=== PATIENT | female | born 1990 | race Caucasian/White ===

== ENCOUNTER 2017-02-19 19:35 | Inpatient (IN) | payer BC ==
[2017-02-19] MEDS ORDERED: PROMETHAZINE HCL 25 MG/1 ML VIAL IVPUSH ONE (20:17)
[2017-02-19] MEDS ORDERED: BUTORPHANOL TARTRATE 1 MG/ML VIAL IVPB PRN (20:30)
[2017-02-19] MEDS ORDERED: ELECTROLYTE-148 SOLN 1,000 ML IV SCH (20:30)
--- NOTE | 2017-02-19 20:33 | HP ---
Past Medical History - Admission Chief Complaint: painful contractions, irregulary for the past 48 hours History of Present Illness: 27 y/o with SIUP at 39.3 weeks gestation here with painful contractions for the past 2 days. Pt was seen in the office yesterday and cervix was 1cm dilated. Pt with irregular contractions on monitor, cervix now 2cm/50/-2. uncomplicated. GBS positive. HIV negative. Pt did travel to [facility] in August - did not undergo Zika Virus testing. +FM, occ ctx, no VB/LOF. 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 Cardiovascular: No: HTN Pulmonary: No: Asthma, COPD Gastrointestinal: No: GERD, Irritable Bowel Disease Reproductive: No: Ectopic , Endometriosis, Fibroids ...: 2 ...Para: 1 ...Term: 1 ...: 0 ...Spon : 0 ...Induced : 0 ...Multiple Gestation: 0 Heme/Onc: Yes: Anemia (history of) Infectious Disease: No: HIV, MRSA Psych: No: Anxiety, Bipolar, Depression Endocrine: No: Diabetes Mellitus, Hyperthyroidism, Hypothyroidism - Past Surgical History Past Surgical History: Yes: None Hx Myomectomy: No Hx Transabdominal Cerclage: No - Alcohol/Substance Use History of Substance Use: reports: None - Social History Usual Living Arrangement: Yes: With Spouse ADL: Independent History of Recent Travel: Yes ([facility] for 1 week in August) Physical Exam - Maternity Constitutional: Yes: Well Nourished, No Distress, Calm Eyes: Yes: Conjunctiva Clear, EOM Intact HENT: Yes: Atraumatic, Normocephalic Neck: Yes: Supple, Trachea Midline Cardiovascular: Yes: Regular Rate and Rhythm Lungs: Clear to auscultation - Abdominal Exam/OB Fundal Height: 40 Number of Fetuses: Single Presentation: Vertex Contractions: Yes Regularity: Irregular Intensity: Mild/Mod Monitor Mode: External Heart Rate (range): 130 Category: I Accelerations: Uniform Decelerations: None - Vaginal Exam/OB Dilatation (cm): 2 Effacement (%): 50 Amniotic Membrane Status: Intact Presentation: Vertex/Position Station: -2 - Physical Exam Psychiatric: Yes: Alert, Oriented Hemorrhage Risk Assessment - Risk Factors Medium Risk Factors: Yes: None High Risk Factors: Yes: None Risk Score: 1 Risk Level: Medium Risk Problem List - Problems (1) Term Code(s): Z34.80 - ENCOUNTER FOR SUPRVSN OF NORMAL , UNSP TRIMESTER (2) Irregular contractions Code(s): O62.2 - OTHER UTERINE INERTIA Assessment/Plan 27 y/o with SIUP at 39.3 weeks, early labor for augmentation - FHTS cat 1 - early labor, for pitocin augmentation - epidural/analgesia prn - GBS positive, to start ampicillin when begins to dilate or ROM
[2017-02-19] MEDS ORDERED: OXYTOCIN 15 UNITS/ LR 250 ML 250 ML IV SCH (20:45)
[2017-02-19] MEDS ORDERED: DEXTROSE 5%-LACTATED RINGERS 1,000 ML IV SCH (20:45)
[2017-02-19 21:44] LABS: BASOPHIL 0.2 % (0-2.0); EOSINOPHIL 0.6 % (0-4.5); MCH 26.2 pg (25.7-33.7); MCHC 32.1 g/dl (32.0-36.0); MEAN CELL VOLUME 81.4 fl (80-96); MEAN PLT VOLUME 11.9 fl (7.5-11.1); NEUTROPHILS 73.6 % (42.8-82.8); PLATELET COUNT 171 K/MM3 (134-434); RDW 13.9 % (11.6-15.6); WHITE BLOOD COUNT 11.4 K/mm3 (4.0-10.0)
[2017-02-19 21:55] LABS: INR 0.96 (0.82-1.09); PROTHROMBIN TIME (PATIENT) 10.5 SEC (9.98-11.88)
[2017-02-19 21:57] LABS: ACTIVATED PTT 26.9 SECONDS (26.9-34.4)
[2017-02-19 22:12] VITALS: BMI 30.2
[2017-02-19 22:15] LABS: ANION GAP 11 (8-16); CALCIUM 8.8 mg/dL (8.5-10.1); CO2 23 mmol/L (21-32); CREATININE 0.6 mg/dL (0.55-1.02); GLUCOSE,RANDOM 84 mg/dL (74-106)
[2017-02-20] MEDS ORDERED: DEXTROSE 5%-LACTATED RINGERS 1,000 ML IV ONE (02:00)
[2017-02-20] MEDS ORDERED: AMPICILLIN - 100 ML IVPB ONE (07:00)
[2017-02-20] MEDS ORDERED: AMPICILLIN - 100 ML IVPB SCH (11:00)
--- NOTE | 2017-02-20 11:31 | PN ---
Ante-Partal Exam - Subjective Subjective: Pt s/p SROM at 0640 am. Pt received stadol/phenergan for pain control. Tolerating contractions - sleeping in between contractions. Vital Signs: Vital Signs Temperature 97.5 F L 02/20/17 10:00 Pulse Rate 62 02/20/17 11:00 Respiratory Rate 20 02/20/17 11:00 Blood Pressure 108/71 02/20/17 11:00 O2 Sat by Pulse Oximetry (%) Bleeding: No Headache: No Visual changes: No Right upper quadrant pain: No Pain (scale 1-10): 4 - Contractions Contractions: Yes Regularity: Regular - Exam during Labor Heart Rate: 125 Variability: Moderate Category: I Monitor Accelerations: Present Monitor Decelerations: None Exam: Vaginal Dilatation (cm): 3.5 Effacement (%): 70 Amniotic Membrane Status: Ruptured Amniotic Fluid: Clear Presentation: Vertex Station: -2 - Assessment/Plan Assessment/Plan: SIUP at 39 weeks, early labor, augmented - FHTS cat 1 - continue active management with pitocin - GBS positive, continue ampicillin - anticipate
[2017-02-20] MEDS ORDERED: FENTANYL/BUPIVACAINE/NS/PF - PCEA - 50 ML DISP.SYRIN EP SCH (12:15)
--- NOTE | 2017-02-20 13:25 | PN ---
Ante-Partal Exam - Subjective Subjective: Pt comfortable s/p epidural. Vital Signs: Vital Signs Temperature 97.8 F 02/20/17 12:00 Pulse Rate 60 02/20/17 12:45 Respiratory Rate 20 02/20/17 12:45 Blood Pressure 116/71 02/20/17 12:45 O2 Sat by Pulse Oximetry (%) 100 02/20/17 12:45 Bleeding: No Headache: No Visual changes: No Right upper quadrant pain: No Pain (scale 1-10): 0 - Contractions Contractions: Yes Regularity: Regular Intensity: Mod/Strong Monitor Mode: External - Exam during Labor Heart Rate: 125 Category: I Monitor Accelerations: Absent Monitor Decelerations: None Exam: Vaginal Dilatation (cm): 10 Effacement (%): 100 Amniotic Fluid: Clear Presentation: Vertex Station: +1 - Assessment/Plan Assessment/Plan: 27 y/o with SIUP at 39+ weeks gestation, early labor, augmented - AFVSS - FHTS cat 1 - labor, now fully dilated, to begin pushing - GBS positive, continue ampicillin - anticipate
[2017-02-20] MEDS ORDERED: ACETAMINOPHEN 325 MG TABLET (FP) PO PRN (14:08)
[2017-02-20] MEDS ORDERED: BENZOCAINE 28 GM HEMORRHOIDAL OINTMENT TP PRN (14:08)
[2017-02-20] MEDS ORDERED: METHYLERGONOVINE MALEATE 0.2 MG/1 ML AMP IM PRN (14:08)
[2017-02-20] MEDS ORDERED: BISACODYL 10 MG SUPP.RECT RC PRN (14:08)
[2017-02-20] MEDS ORDERED: WITCH HAZEL 50% (TUCKS) 40 PAD/JAR PAD TP PRN (14:08)
[2017-02-20] MEDS ORDERED: IBUPROFEN 600 MG TABLET (FP) PO PRN (14:08)
[2017-02-20] MEDS ORDERED: BENZOCAINE 20% 57 GM BOTTLE TP PRN (14:08)
--- NOTE | 2017-02-20 14:14 | PN ---
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: No Gender: Male Position: Right, OA - 1 Minute Total Score: 9 5 Minutes Total Score: 9 - [place] Feeding Plan Initial Plan: Elected not to breastfeed exclusively throughout hospitalization Remarks - Remarks Remarks: normal spontaneous vaginal delivery across intact perineum from ODALYS position anterior shoulder (left) and remainder of delivered with ease delayed cord clamping completed 3VC noted, clamped and cut mouth and nose bulb suctioned after delivery Apgars 9/9 placenta delivered in tact and spontaneously sponge count correct after delivery perineum in tact - no laceration to repair mom stable baby to well baby nursery
[2017-02-20] MEDS ORDERED: OXYTOCIN 20 UNITS in 0.9% NS 1,000 ML IV SCH (14:15)
[2017-02-20] MEDS: IBUPROFEN 600 MG TABLET (FP) PO PRN (17:19)
[2017-02-20] MEDS: ACETAMINOPHEN 325 MG TABLET (FP) PO PRN (17:19)
[2017-02-20] MEDS: FERROUS SO4 325 MG TABLET (FP) PO SCH (18:18)
[2017-02-21 08:23] LABS: BASOPHIL 0.2 % (0-2.0); EOSINOPHIL 0.6 % (0-4.5); MCH 26.5 pg (25.7-33.7); MCHC 32.2 g/dl (32.0-36.0); MEAN CELL VOLUME 82.1 fl (80-96); MEAN PLT VOLUME 11.2 fl (7.5-11.1); NEUTROPHILS 79.1 % (42.8-82.8); PLATELET COUNT 136 K/MM3 (134-434); RDW 14.3 % (11.6-15.6); WHITE BLOOD COUNT 14.7 K/mm3 (4.0-10.0)
[2017-02-21] MEDS: PRENATAL VITAMINS W/ FOLIC ACID TABLET (FP) PO SCH (09:02)
[2017-02-21] MEDS: FERROUS SO4 325 MG TABLET (FP) PO SCH ×3 (09:02→16:32)
--- NOTE | 2017-02-21 10:20 | PN ---
Post Note - Post Date of Delivery: 02/20/17 Vital Signs: Vital Signs - 24 hr 02/20/17 02/20/17 02/20/17 11:00 12:00 12:05 Temperature 97.8 F Pulse Rate 62 89 92 H Respiratory 20 20 20 Rate Blood Pressure 108/71 115/72 101/63 O2 Sat by Pulse 99 99 Oximetry (%) 02/20/17 02/20/17 02/20/17 12:10 12:15 12:30 Temperature Pulse Rate 83 79 71 Respiratory 20 20 20 Rate Blood Pressure 109/70 118/67 118/71 O2 Sat by Pulse 99 98 100 Oximetry (%) 02/20/17 02/20/17 02/20/17 12:45 13:00 13:15 Temperature Pulse Rate 60 64 74 Respiratory 20 20 20 Rate Blood Pressure 116/71 114/78 108/70 O2 Sat by Pulse 100 100 100 Oximetry (%) 02/20/17 02/20/17 02/20/17 13:30 13:45 14:15 Temperature Pulse Rate 64 75 78 Respiratory 20 20 20 Rate Blood Pressure 108/72 117/67 116/60 O2 Sat by Pulse 100 100 Oximetry (%) 02/20/17 02/20/17 02/20/17 14:30 14:45 14:46 Temperature Pulse Rate 84 85 Respiratory 20 20 Rate Blood Pressure 115/68 115/67 O2 Sat by Pulse 100 100 Oximetry (%) 02/20/17 02/20/17 02/20/17 15:00 16:50 22:00 Temperature 97.7 F 99.9 F H 99.0 F Pulse Rate 83 80 62 Respiratory 20 20 18 Rate Blood Pressure 116/66 116/63 116/69 O2 Sat by Pulse 100 Oximetry (%) 02/21/17 02/21/17 02/21/17 02:00 05:37 08:52 Temperature 99.0 F 97.8 F 98.8 F Pulse Rate 65 68 66 Respiratory 18 18 18 Rate Blood Pressure 121/61 100/61 119/79 O2 Sat by Pulse Oximetry (%) Labs: Laboratory Results - last 24 hr 02/19/17 02/21/17 20:00 07:00 WBC 14.7 H RBC 4.27 Hgb 11.3 Hct 35.0 MCV 82.1 MCHC 32.2 RDW 14.3 Plt Count 136 D MPV 11.2 H Neutrophils % 79.1 Lymphocytes % 12.6 D Monocytes % 7.5 Eosinophils % 0.6 Basophils % 0.2 RPR Titer Nonreactive - Subjective Subjective: No Complaints - Objective Afebrile: No Breast: Not engorged Abdomen: Soft, Non-tender Uterus: Fundus firm Vagina: Scant lochia Extremities: Non-tender - Assessment/Plan (1) (normal spontaneous vaginal delivery) Assessment: S/P Normal Plan: Routine Care
[2017-02-21] MEDS: IBUPROFEN 600 MG TABLET (FP) PO PRN (16:32)
[2017-02-21] MEDS: ACETAMINOPHEN 325 MG TABLET (FP) PO PRN (16:33)
[2017-02-21] MEDS ORDERED: SENNOSIDES/DOCUSATE COMBO (SENNA PLUS) TABLET (UD) PO PRN (22:00)
--- NOTE | 2017-02-22 08:37 | PN ---
Post Note - Post Date of Delivery: 02/20/17 Vital Signs: Vital Signs - 24 hr 02/21/17 02/21/17 08:52 22:00 Temperature 98.8 F 98.7 F Pulse Rate 66 89 Respiratory 18 18 Rate Blood Pressure 119/79 116/74 - Subjective Subjective: No Complaints - Objective Afebrile: Yes Breast: Not engorged Abdomen: Soft, Non-tender Uterus: Fundus firm Vagina: Scant lochia Extremities: Non-tender - Assessment/Plan (1) (normal spontaneous vaginal delivery) Assessment: S/P Normal Plan: Other (Wi home)
[2017-02-22] MEDS: ACETAMINOPHEN 325 MG TABLET (FP) PO PRN (09:07)
[2017-02-22] MEDS: FERROUS SO4 325 MG TABLET (FP) PO SCH ×2 (09:07→12:10)
[2017-02-22] MEDS: PRENATAL VITAMINS W/ FOLIC ACID TABLET (FP) PO SCH (09:07)
[2017-02-22] MEDS: IBUPROFEN 600 MG TABLET (FP) PO PRN (09:07)
[2017-02-22 09:21] VITALS: BP 120/77; PULSE 70; TEMP 98.8
--- NOTE | 2017-02-22 09:25 | DS ---
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 Vital Signs: Vital Signs Temperature 98.8 F 02/22/17 09:20 Pulse Rate 70 02/22/17 09:20 Respiratory Rate 20 02/22/17 09:20 Blood Pressure 120/77 02/22/17 09:20 O2 Sat by Pulse Oximetry (%) 100 02/20/17 15:00 Labs: CBC, BMP 02/21/17 07:00 02/19/17 20:00 Delivery - Delivery Vaginal Delivery: No Problems Type of Anesthesia: Epidural Episiotomy/Laceration: None EBL (cc): 300 Delivery, Single - Stages of Labor Date 1st Stage Initiatied: 02/20/17 Time 1st Stage Initiated: 01:00 Date 2nd Stage Initiated: 02/20/17 Time 2nd Stage Initiated: 13:24 Date of Delivery: 02/20/17 Time of Delivery: 13:57 Time Placenta Delivered: 14:01 Placenta: Yes: Spontaneous - 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 You may walk unlimited aysha of and climb stairs. You may resume driving the car when you feel safe and comfortable behind the wheel. No sexual activity as instructed. Wound care If you have a bandage, leave it on, and keep dry for 48-72 hours. After that time discard the outer bandage. If they are tapes on the skin under the out of bandage leave them in place. They will peel off in the next 7 to 10 days. Do Not Peel them off. You may shower the day after surgery. If there are tapes present on the skin, you may shower over them. Diet There are no dietary restrictions. Eat healthy, high-fiber foods. Drink 6 to 8 glasses of liquid each day. This will assist in keeping your bowels are regular. Pain management You may take Tylenol or acetaminophen or Ibuprofen (for example, Motrin, Advil etc.) from my pain prescription medication is ordered should be taken as prescribed for moderate to severe pain. Call MD for any of the following: Severe pain not relieved by medication Fever of 101 or higher Excessive bleeding or drainage on dressing Inability to urinate return to office in 4-6 weeks. call for appointment. Referrals: Noemy Huitron MD [Staff Physician] - Disposition: HOME - Home Medications Comprehensive Discharge Medication List: Ambulatory Orders Vitamin Tablet 1 tab PO DAILY 08/31/12 Acetaminophen [Tylenol .Regular Strength -] 650 mg PO Q3H PRN #0 tablet Ibuprofen [Motrin -] 600 mg PO Q4H PRN #0 tablet 09/03/12 Vitamins (Sjr) - 1 tab PO DAILY 02/19/17 Ibuprofen [Motrin -] 600 mg PO QID PRN #28 tablet 02/22/17
== END 2017-02-22 12:40 | disposition home or self-care (01) | DRG 775 ==
LOC: MERGE 19:35 → JLDR 19:35 → J3W 02-20 17:05
PROVIDERS: ADMIT Obstetrics & Gynecology; ATTEND Obstetrics & Gynecology
PROC: 10E0XZZ Delivery of Products of Conception, External Approach (ICD-10-PCS; principal; 2017-02-20)
DX: O80 Encounter for full-term uncomplicated delivery (principal); Z3A.39 39 weeks gestation of pregnancy; Z22.330 Carrier of Group B streptococcus; Z37.0 Single live birth
CPT/HCPCS: 36415; 59409; 80048; 85025; 85610; 85730; 86593; 86850; 86900; 86901

== ENCOUNTER 2017-06-16 04:52 | Day surgery (SDC) | payer BC ==
[2017-06-12 16:13] VITALS: BMI 29.0
[2017-06-16 06:53] VITALS: TEMP 97.9
[2017-06-16] MEDS ORDERED: MIDAZOLAM HCL 2 MG/2 ML SINGLE DOSE VIAL ONE (07:53)
[2017-06-16] MEDS ORDERED: ROCURONIUM BROMIDE 50 MG/5 ML VIAL ONE (07:53)
[2017-06-16] MEDS ORDERED: PROPOFOL 20 ML ONE ×2 (07:53)
[2017-06-16] MEDS ORDERED: LIDOCAINE HCL/PF 2% SDV 5ML VIAL ONE (07:54)
[2017-06-16] MEDS ORDERED: ACETAMINOPHEN 325 MG TABLET (FP) PO PRN (08:02)
[2017-06-16] MEDS ORDERED: IBUPROFEN 600 MG TABLET (FP) PO PRN (08:02)
[2017-06-16] MEDS ORDERED: IBUPROFEN 800 MG/8 ML IJ IVPB PRN (08:02)
--- NOTE | 2017-06-16 08:07 | HP ---
History & Physical Update - History History: No Change - Physical Physical: No Change - Assessment Assessment: No Change - Plan Plan: No Change (Desires permanent sterilization, for laparoscopic salpingectomy )
[2017-06-16] MEDS ORDERED: ONDANSETRON 4 MG/2 ML VIAL ONE (08:09)
[2017-06-16] MEDS ORDERED: DEXAMETHASONE SOD PHOSPHATE 4 MG/1 ML VIAL ONE (08:09)
[2017-06-16] MEDS ORDERED: BUPIVACAINE HCL/PF 0.5% (5MG/ML) 10 ML VIAL ONE (08:14)
[2017-06-16] MEDS ORDERED: LACTATED RINGERS SOLUTION 1,000 ML IV SCH ×2 (08:15→09:00)
[2017-06-16] MEDS ORDERED: BUPIVACAINE HCL/PF 0.5% (5MG/ML) 10 ML VIAL IJ ONE (08:40)
[2017-06-16] MEDS ORDERED: GLYCOPYRROLATE 0.2 MG/1 ML VIAL ONE (08:42)
[2017-06-16] MEDS ORDERED: NEOSTIGMINE METHYLSULFATE 0.5 MG/ML - 10 ML MDV ONE (08:42)
[2017-06-16] MEDS ORDERED: ONDANSETRON 4 MG/2 ML VIAL IVPUSH PRN (09:00)
[2017-06-16] MEDS ORDERED: PROMETHAZINE HCL 25 MG/1 ML VIAL IVPUSH PRN (09:00)
--- NOTE | 2017-06-16 09:02 | SURG ---
Surgery Counter Maker Note Counter Maker: Miriam Kaye PA-C Date of Service: 06/16/17 Diagnosis: elective sterilization Procedure: Bilateral laprascopic salpingectomy I was present for the entirety of the operative procedure. For further detail, please refer to operative report. Visit type - Case Type Case Type: Scheduled Admission - Emergency Emergency Visit: No - New patient This patient is new to me today: Yes Date on this admission: 06/16/17
[2017-06-16] MEDS ORDERED: IBUPROFEN 600 MG TABLET (FP) PO ONE ×2 (10:30→10:37)
[2017-06-16 12:07] VITALS: BP 113/69; PULSE 59
--- NOTE | 2017-06-16 16:08 | OP ---
Operative Note - Note: Operative Date: 06/16/17 ([id number]) Pre-Operative Diagnosis: desire for permanent sterilization Operation: laparoscopic bilateral salpingectomy Findings: normal bilateral fallopian tubes Post-Operative Diagnosis: Same as Pre-op Surgeon: Sania Layton [employer]: Miriam Kaye Anesthesia: General Estimated Blood Loss (mls): 5 Operative Report Dictated: Yes
--- NOTE | 2017-06-17 08:11 | OP ---
DATE OF OPERATION: 06/16/2017 PREOPERATIVE DIAGNOSIS: Desire for permanent sterilization. POSTOPERATIVE DIAGNOSIS: Desire for permanent sterilization. PROCEDURE: Laparoscopic bilateral salpingectomy. SURGEON: Sania Layton DO PLUCK TRIMMER: Miriam Kaye ESTIMATED BLOOD LOSS: 5 mL. SPECIMENS REMOVED: Included bilateral fallopian tubes. COMPLICATIONS: None. DISPOSITION: Stable to PACU. Sponge, needle, and instrument count were reported correct. BRIEF HISTORY: The patient is a 27-year-old female who had been counseled on her options in the office for contraceptive and permanent sterilization procedure. The patient elected to undergo a laparoscopic bilateral salpingectomy. The patient signed consents in the office and then was taken to [facility] at which point consents were reconfirmed. DESCRIPTION OF PROCEDURE: The patient was taken back to the operating room, given general anesthesia, and placed in dorsal lithotomy position. A Starks catheter was placed under sterile conditions. The patient was then prepped and draped, and a hard time-out was performed. A 5-mm skin incision was created in the inferior umbilicus, and a Veress needle was placed intra-abdominally. The abdomen was inflated with CO2 gas then a 5-mm trocar was placed in the umbilical incision. The camera was inserted. After confirmation of intra-abdominal entry location, 2 bilateral lower quadrant ports were placed under direct visualization. The left fallopian tube was identified, elevated, and dissected off its attachments to the ovary, the mesoappendix, and the uterus and removed through the 5-mm trocar site without difficulty and sent to Pathology for permanent evaluation. The same was repeated with the right fallopian tube. The surgical site was noted to be hemostatic. The intra-abdominal inspection noted no other abnormalities. At this point, the camera was removed, the abdomen was desufflated, trocars were removed. The skin was reapproximated using Biosyn suture and skin glue. Starks catheter was removed. The patient was awoken from anesthesia. Sponge, needle, and instrument counts were reported to be correct, and she was recovering in stable condition in PACU at the time of this dictation. SANIA LAYTON DO /[id number]
--- NOTE | 2017-06-19 13:06 | PATH ---
Surgical Pathology Report Patient Name: MESSI JOVEL [facility]. Rec. #: [id number] /Age/Gender: 1990 (Age: 27) / F Account: [id number] Location: [facility] Taken: 06/16/2017 Received: 06/16/2017 Reported: 06/19/2017 Physicians: Sania Layton M.D. Specimen(s) Received A: FALLOPIAN TUBE, LEFT B: FALLOPIAN TUBE, RIGHT Clinical History Desired sterilization Final Diagnosis A. FALLOPIAN TUBE, LEFT, LAPAROSCOPIC SALPINGECTOMY: FULL LUMINAL PORTION OF UNREMARKABLE FALLOPIAN TUBE. B. FALLOPIAN TUBE, RIGHT, LAPAROSCOPIC SALPINGECTOMY: FULL LUMINAL PORTION OF UNREMARKABLE FALLOPIAN TUBE. Electronically Signed Ирина Avendano M.D. Gross Description A. Received in formalin labeled "fallopian tube left," is a 5.5 cm in length fimbriated fallopian tube. The outer surface is melendez purple and smooth. Sectioning reveals an unremarkable lumen. Security Nurse sections are submitted in 2 cassettes as follows: 1-fimbria; 2-cross sections of fallopian tube. B. Received in formalin labeled "fallopian tube right," is a 5 cm in length fimbriated fallopian tube. The outer surface is melendez purple and smooth. Sectioning reveals an unremarkable lumen. Security Nurse sections are submitted in 2 cassettes as follows: 1-fimbria; 2-cross sections of fallopian tube. DL/06/16/2017 saudi06/16/2017
== END 2017-06-16 12:30 | disposition home or self-care (01) ==
LOC: JASU-SURG 04:52
PROVIDERS: ATTEND Obstetrics & Gynecology
PROC: 0U574ZZ Destruction of Bilateral Fallopian Tubes, Percutaneous Endoscopic Approach (ICD-10-PCS; principal; 2017-06-16 08:00)
DX: Z30.2 Encounter for sterilization (principal)
CPT/HCPCS: 84703; 88302-TC; 94760